=== PATIENT | female | born 1960 | race Caucasian/White ===

== ENCOUNTER 2025-02-19 15:22 | Outpatient (CLI) | payer BC | END 2025-02-19 15:23 | disposition home or self-care (01) | LOC: CSHMAMMO 15:22 | PROVIDERS: ATTEND Physician Assistant | DX: Z12.31 Encounter for screening mammogram for malignant neoplasm of breast (principal); Z80.3 Family history of malignant neoplasm of breast; R92.333 Mammographic heterogeneous density, bilateral breasts | CPT/HCPCS: 77063; 77067 ==